=== PATIENT | female | born 1975 | race Caucasian/White ===

== ENCOUNTER 2021-08-13 20:11 | Emergency (ER) | payer BC ==
--- NOTE | 2021-08-13 20:27 | ED Physician Documentation ---
PD HPI CHEST PAIN - Stated complaint Stated Complaint: CHEST PAIN, HX OF CARDIAC - Chief complaint Chief Complaint: Cardiac - History obtained from History obtained from: Patient - History of Present Illness Timing - onset: How many days ago (2-3 days) Timing - duration: Days Timing - details: Gradual onset, Constant Pain level now: 8 Quality: Pain Location: Substernal Improved by: Nothing Worsened by: Other (no exacerbating factors) Associated symptoms: No: Shortness of air, Diaphoresis, Nausea, Vomiting, Feeling faint / dizzy, General Weakness, Palpitations Recently seen: Emergency Dept - Additional information Additional information: patient states "my chest and my head are killing me", onset 2-3 days ago without inciting/exacerbating/ameliorating factors. She says she was evaluated in an ED in [place], [place] 2 days ago for this but left prior to completion of evaluation because test results "were taking too long" (per patient). Patient just moved to [facility]. She says she had COVID in November that resulted in PE and a "hang in my coronary artery" (per patient) . She says she was on anticoagulants for three months. Review of Systems Constitutional: reports: Reviewed and negative Cardiac: reports: Chest pain / pressure. denies: Palpitations, Pedal edema, Calf pain Respiratory: reports: Reviewed and negative GI: reports: Reviewed and negative : denies: Now EGA Musculoskeletal: reports: Reviewed and negative Neurologic: reports: Headache. denies: Generalized weakness, Focal weakness, Numbness PD PAST MEDICAL HISTORY - Past Medical History Past Medical History: Yes Respiratory: Other (PE) - Present Medications Home Medications: Ambulatory Orders Medication Instructions Recorded Confirmed Omeprazole 1 tab PO DAILY 08/13/21 08/13/21 - Allergies Allergies/Adverse Reactions: Allergies Allergy/AdvReac Type Severity Reaction Status Date / Time Penicillins Allergy Unknown Verified 08/13/21 20:33 Sulfa (Sulfonamide Allergy Unknown Verified 08/13/21 20:33 Antibiotics) PD ED PE NORMAL - Vitals Vital signs reviewed: Yes - General General: Alert and oriented X 3, No acute distress, Well developed/nourished - HEENT HEENT: Moist mucous membranes - Neck Neck: Supple, no meningeal sign - Cardiac Cardiac: RRR, No murmur, No gallop, No rub - Respiratory Respiratory: No respiratory distress, Clear bilaterally - Abdomen Abdomen: Soft, Non distended, Other (RUQ and epigastric TTP without rebound or guarding) - Derm Derm: Normal color, Warm and dry - Extremities Extremities: No edema Results - Vitals Vitals: Vital Signs - 24 hr 08/13/21 20:25 Temperature 36.7 C Heart Rate 75 Respiratory 17 Rate Blood Pressure 118/88 H O2 Saturation 100 Oxygen O2 Source Room air - EKG (time done) No standard instances Rate: Rate (enter#) (88) Rhythm: NSR [place]: Normal Intervals: Normal MT QRS: Normal Ischemia: Normal ST segments - Labs Labs: Laboratory Tests 08/13/21 08/13/21 08/13/21 21:01 21:01 21:01 WBC 4.3 L RBC 4.27 Hgb 11.6 L Hct 37.1 MCV 86.9 MCH 27.2 MCHC 31.3 L RDW 15.9 H Plt Count 239 MPV 8.9 Neut # (Auto) 2.4 Lymph # (Auto) 1.5 [place] # (Auto) 0.3 Eos # (Auto) 0.1 Baso # (Auto) 0.1 Absolute Nucleated RBC 0.00 Nucleated RBC % 0.0 D-Dimer Sodium 145 Potassium 3.5 Chloride 105 Carbon Dioxide 27 Anion Gap 13.0 BUN 7 Creatinine 0.7 Estimated GFR (MDRD) 91 Glucose 83 Calcium 8.5 Total Bilirubin 0.6 AST 74 H ALT 86 H Alkaline Phosphatase 61 Troponin I High Sens 3.6 Total Protein 6.0 L Albumin 3.5 Globulin 2.5 Albumin/Globulin Ratio 1.4 Lipase 56 H 08/13/21 21:01 WBC RBC Hgb Hct MCV MCH MCHC RDW Plt Count MPV Neut # (Auto) Lymph # (Auto) [place] # (Auto) Eos # (Auto) Baso # (Auto) Absolute Nucleated RBC Nucleated RBC % D-Dimer 884.1 H Sodium Potassium Chloride Carbon Dioxide Anion Gap BUN Creatinine Estimated GFR (MDRD) Glucose Calcium Total Bilirubin AST ALT Alkaline Phosphatase Troponin I High Sens Total Protein Albumin Globulin Albumin/Globulin Ratio Lipase - Rads (name of study) chest xray Radiology: Prelim report reviewed, See rad report PD MEDICAL DECISION MAKING - ED course Complexity details: reviewed results, re-evaluated patient, considered differ ential, d/w patient ED course: Unremarkable EKG, CXR. mild leukopenia (wbc 4.3), mildly elevated AST, ALT, lipase. Normal troponin. ED RN reported to me that patient was still having pain and requesting pain medication. I added d-dimer and ordered toradol (IV), and PO maalox with viscous lidocaine, and I then went to reevaluate patient. I reviewed the test results with patient and she asked for something for the pain. I explained the medications that I had ordered as well as the next test ordered (d-dimer). She was initially agreeable to this. I asked her if we could contact the ED in [place] where she was recently seen to obtain records, specifically for the purpose of reviewing test results from that visit. She says she cannot remember the name of the ED. Patient then says she cannot take NSAIDs because they cause GI upset and before any further discussion regarding options for pain control she insists on leaving. I reiterated my plan to obtain d-dimer but she insists on leaving before result of d-dimer was available. I encouraged her to return at any time she wants to be reevaluated. Departure - Departure Disposition: 01 Home, Self Care Clinical Impression: Chest pain Qualifiers: Chest pain type: unspecified Qualified Code(s): R07.9 - Chest pain, unspecified Condition: Good Instructions: ED Chest Pain Atypical Unkn Cause Follow-Up: IGGY POWERS, MSN, CONTRACT ASSOCIATE [Credentialed Staff Provider] - (Call to arrange for next available appointment) Comments: You have to declined further testing at this time. Specifically, as we discussed, I ordered another blood test called d-dimer. This is a test that can help investigate pulmonary embolism and guide further testing; a positive result typically indicates the need for a CT scan. You have indicated you do not want to stay and have further testing at this time. You can return to this emergency department at any time for reevaluation. Discharge Date/Time: 08/13/21 22:23
[2021-08-13 20:28] VITALS: BP 118/88
[2021-08-13 21:08] LABS: BASOPHILS # (AUTO) 0.1 10^3/uL (0.0-0.1); BASOPHILS % (AUTO) 1.2 %; EOSINOPHILS # (AUTO) 0.1 10^3/uL (0.0-0.7); EOSINOPHILS % (AUTO) 1.8 %; HCT - HEMATOCRIT 37.1 % (37.0-47.0); HGB - HEMOGLOBIN 11.6 g/dL (12.0-16.0); LYMPHOCYTES # (AUTO) 1.5 10^3/uL (1.5-3.5); LYMPHOCYTES % (AUTO) 35.3 %; MEAN CORPUSCULAR HEMOGLOBIN 27.2 pg (27.0-31.0); MEAN CORPUSCULAR HGB CONC 31.3 g/dL (32.0-36.0); MEAN CORPUSCULAR VOLUME 86.9 fL (81.0-99.0); MEAN PLATELET VOLUME 8.9 fL (7.9-10.8); MONOCYTES # (AUTO) 0.3 10^3/uL (0.0-1.0); MONOCYTES % (AUTO) 6.9 %; NEUTROPHILS # (AUTO) 2.4 10^3/uL (1.5-6.6); NEUTROPHILS % (AUTO) 54.6 %; PLT - PLATELET COUNT 239 10^3/uL (130-450); RED BLOOD COUNT 4.27 10^6/uL (4.20-5.40); RED CELL DISTRIBUTION WIDTH 15.9 % (12.0-15.0); WHITE BLOOD COUNT 4.3 x10^3/uL (4.8-10.8)
[2021-08-13 21:23] LABS: ALBUMIN 3.5 g/dL (3.2-5.5); ALBUMIN/GLOBULIN RATIO 1.4 (1.0-2.2); BILIRUBIN,TOTAL 0.6 mg/dL (0.2-1.0); CALCIUM 8.5 mg/dL (8.5-10.3); CREATININE 0.7 mg/dL (0.4-1.0); POTASSIUM 3.5 mmol/L (3.5-5.0)
[2021-08-13] MEDS ORDERED: KETOROLAC 30 MG/ML VIAL IVP STA (22:03)
[2021-08-13] MEDS ORDERED: LIDOCAINE VISCOUS 2% 15 ML UDC MM STA (22:03)
[2021-08-13] MEDS ORDERED: MAG HYDROX/AL HYDROX/SIMETH 30 ML UDC PO STA (22:03)
--- NOTE | 2021-08-13 22:10 | XRAY Report ---
PROCEDURE: Chest 2 View X-Ray INDICATIONS: chest pain TECHNIQUE: 2 view(s) of the chest. COMPARISON: None. FINDINGS: Surgical changes and devices: None. Lungs and pleura: No pleural effusions or pneumothorax. Lungs are clear. Mediastinum: Mediastinal contours are normal. Heart size is normal. Bones and chest wall: No suspicious bony abnormalities. Soft tissues appear unremarkable. IMPRESSION: No acute cardiopulmonary process. Reviewed by: Katja Coughlin MD on 08/13/2021 10:08 PM PDT Approved by: Katja Coughlin MD on 08/13/2021 10:08 PM PDT Station ID: [id number]
== END 2021-08-13 22:23 | disposition home or self-care (01) ==
LOC: ED 20:11
DX: R07.9 Chest pain, unspecified (principal)
CPT/HCPCS: 36415; 80053; 83690; 84484; 85025; 85379; 93005; 99283; 99284

== ENCOUNTER 2021-08-17 09:41 | Emergency (ER) | payer BC ==
[2021-08-17] MEDS ORDERED: SODIUM CHLORIDE 0.9% 1,000 ML IV STA (10:03)
--- NOTE | 2021-08-17 10:18 | XRAY Report ---
PROCEDURE: Chest 1 View X-Ray INDICATIONS: chest pain TECHNIQUE: One view of the chest was acquired. COMPARISON: 08/13/2021 FINDINGS: Surgical changes and devices: None. Lungs and pleura: No pleural effusions or pneumothorax. Lungs are clear. Mediastinum: Mediastinal contours appear normal. Heart size is normal. Bones and chest wall: No suspicious bony lesions. Overlying soft tissues appear unremarkable. IMPRESSION: Stable examination of the chest without acute cardiopulmonary abnormalities or focal airspace disease . Reviewed by: Shaw Guallpa MD on 08/17/2021 10:16 AM PDT Approved by: Shaw Guallpa MD on 08/17/2021 10:16 AM PDT Station ID: [id number]
[2021-08-17 10:56] LABS: BASOPHILS % (AUTO) 0.5 %; EOSINOPHILS # (AUTO) 0.1 10^3/uL (0.0-0.7); EOSINOPHILS % (AUTO) 2.3 %; HGB - HEMOGLOBIN 11.5 g/dL (12.0-16.0); LYMPHOCYTES % (AUTO) 26.4 %; MEAN CORPUSCULAR HEMOGLOBIN 27.2 pg (27.0-31.0); MEAN CORPUSCULAR HGB CONC 30.3 g/dL (32.0-36.0); MEAN CORPUSCULAR VOLUME 89.8 fL (81.0-99.0); MEAN PLATELET VOLUME 9.8 fL (7.9-10.8); MONOCYTES # (AUTO) 0.3 10^3/uL (0.0-1.0); MONOCYTES % (AUTO) 8.2 %; NEUTROPHILS # (AUTO) 2.4 10^3/uL (1.5-6.6); NEUTROPHILS % (AUTO) 62.3 %; PLT - PLATELET COUNT 165 10^3/uL (130-450); RED BLOOD COUNT 4.23 10^6/uL (4.20-5.40); RED CELL DISTRIBUTION WIDTH 15.9 % (12.0-15.0); WHITE BLOOD COUNT 3.9 x10^3/uL (4.8-10.8)
[2021-08-17 11:09] LABS: ALBUMIN 3.3 g/dL (3.2-5.5); ALBUMIN/GLOBULIN RATIO 1.3 (1.0-2.2); BILIRUBIN,TOTAL 0.8 mg/dL (0.2-1.0); CALCIUM 8.6 mg/dL (8.5-10.3); CREATININE 0.7 mg/dL (0.4-1.0); POTASSIUM 4.1 mmol/L (3.5-5.0); TOTAL PROTEIN 5.9 g/dL (6.7-8.2)
[2021-08-17] MEDS ORDERED: PROMETHAZINE INJ 25 MG in SODIUM CHLORIDE 0.9% 50 ML IV STA (11:15)
[2021-08-17] MEDS ORDERED: KETOROLAC 30 MG/ML VIAL IVP STA (11:15)
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
[2021-08-17] MEDS ORDERED: IOVERSOL 320 100 ML VIAL IVP ONE ×2 (11:59→20:49)
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
[2021-08-17] MEDS ORDERED: HYDROmorphone 0.5 MG/0.5 ML SYRINGE IVP STA (13:12)
[2021-08-17] MEDS ORDERED: DROPERIDOL 5 MG/2 ML VIAL IVP STA (13:12)
[2021-08-17 14:10] VITALS: BP 147/100
== END 2021-08-17 14:10 | disposition home or self-care (01) ==
LOC: ED 09:41
DX: R07.89 Other chest pain (principal); R51.9 Headache, unspecified; R79.89 Other specified abnormal findings of blood chemistry; Z86.711 Personal history of pulmonary embolism; Z86.16 Personal history of COVID-19
CPT/HCPCS: 36415; 70450; 71045; 71275; 80053; 83690; 85025; 85379; 96361; 96365; 96375; 99284; J1170; J7040; Q9967

== ENCOUNTER 2021-10-31 11:51 | Emergency (ER) | payer BC ==
[2021-10-31] MEDS ORDERED: ASPIRIN CHEW 81 MG TABLET PO STA (12:09)
[2021-10-31] MEDS ORDERED: ONDANSETRON 4 MG/2 ML VIAL IVP STA (12:29)
[2021-10-31] MEDS ORDERED: HYDROmorphone 1 MG/ML CARPUJECT IVP STA ×2 (12:29→14:03)
--- NOTE | 2021-10-31 12:30 | ED Physician Documentation ---
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 No recent leg pain or swelling save for a bad knee that is chronic. No recent travel or surgeries. Pain is persistent, severe, unrelated to breathing. Review of Systems Ten Systems: 10 systems reviewed and negative Constitutional: denies: Fever, Chills Cardiac: reports: Chest pain / pressure. denies: Palpitations Respiratory: denies: Cough PD PAST MEDICAL HISTORY - Past Medical History Cardiovascular: Pulmonary embolism Respiratory: Other GI: Other HEEL BUILDER: None : None HEENT: Other Psych: None Musculoskeletal: None Derm: None - Past Surgical History Past Surgical History: Yes General: Gastric surgery - Present Medications Home Medications: Ambulatory Orders Medication Instructions Recorded Confirmed Omeprazole 1 tab PO DAILY 08/13/21 08/13/21 Oxycodone HCl/Acetaminophen 1 - 2 each PO Q6H PRN #14 tablet 10/31/21 [Percocet 5-325 mg Tablet] - Allergies Allergies/Adverse Reactions: Allergies Allergy/AdvReac Type Severity Reaction Status Date / Time metoclopramide [From Reglan] Allergy Anxiety Verified 10/31/21 12:03 Penicillins Allergy Unknown Verified 10/31/21 12:03 Sulfa (Sulfonamide Allergy Unknown Verified 10/31/21 12:03 Antibiotics) - Social History Does the pt smoke?: No Smoking Status: Never smoker Does the pt drink ETOH?: Yes Does the pt have substance abuse?: No - Immunizations Immunizations are current?: Yes PD ED PE NORMAL - Vitals Vital signs reviewed: Yes - General General: Alert and oriented X 3 (Appears mildly uncomfortable) - HEENT HEENT: PERRL, EOMI - Neck Neck: Supple, no meningeal sign, No bony TTP - Cardiac Cardiac: RRR, No murmur - Respiratory Respiratory: No respiratory distress, Clear bilaterally - Abdomen Abdomen: Non tender - Extremities Extremities: No deformity, No tenderness to palpate, No edema, No calf tenderness / cord - Neuro Neuro: Alert and oriented X 3, Normal speech Results - Vitals Vitals: Vital Signs - 24 hr 10/31/21 10/31/21 10/31/21 11:57 12:35 13:18 Temperature 36.5 C Heart Rate 76 61 66 Respiratory 19 16 16 Rate Blood Pressure 118/68 107/63 111/82 H O2 Saturation 100 99 100 Oxygen O2 Source Room air - EKG (time done) 1158 Rate: Rate (enter#) (75) Rhythm: NSR Pierson: Normal Intervals: Normal NV QRS: Normal Ischemia: Normal ST segments - Labs Labs: Laboratory Tests 10/31/21 10/31/21 10/31/21 12:26 12:26 12:26 WBC 4.4 L RBC 4.19 L Hgb 11.5 L Hct 36.9 L MCV 88.1 MCH 27.4 MCHC 31.2 L RDW 14.8 Plt Count 257 MPV 10.0 Neut # (Auto) 2.1 Lymph # (Auto) 1.8 [place] # (Auto) 0.4 Eos # (Auto) 0.1 Baso # (Auto) 0.0 Absolute Nucleated RBC 0.00 Nucleated RBC % 0.0 Sodium 139 Potassium 3.9 Chloride 107 Carbon Dioxide 23 Anion Gap 9.0 BUN 10 Creatinine 0.9 Estimated GFR (MDRD) 68 L Glucose 89 Calcium 8.8 Total Bilirubin 0.5 AST 17 ALT 15 Alkaline Phosphatase 41 L Troponin I High Sens 2.5 Total Protein 6.1 L Albumin 3.6 Globulin 2.5 Albumin/Globulin Ratio 1.4 Lipase 33 - Rads (name of study) Chest x-ray and CTA of the chest Radiology: EMP read contemporaneously PD MEDICAL DECISION MAKING - ED course ED course: 46-year-old woman with sudden severe chest pain radiating to the back since last night who is unlikely have coronary disease based on a nonischemic EKG and the description, that said we still will get a troponin, but her history of PEs and an abnormal aortic valve and the radiation to the back are concerning for dissection versus less likely PE given lack of other findings of PE. Thankfully though CT angiography of the chest demonstrates no abnormalities consistent with the above differential diagnoses. Departure - Departure Disposition: 01 Home, Self Care Clinical Impression: Chest pain Qualifiers: Chest pain type: precordial pain Qualified Code(s): R07.2 - Precordial pain Condition: Good Record reviewed to determine appropriate education?: Yes Instructions: ED Chest Pain NonCardiac Prescriptions: Oxycodone HCl/Acetaminophen [Percocet 5-325 mg Tablet] 1 - 2 each PO Q6H PRN #14 tablet PRN Reason: pain Comments: Prescription sent electronically to [facility] in [place]. Call your doctor to arrange a follow-up appointment, make the next available appointment. In the interim, return anytime if worse or if new symptoms develop. I am prescribing a short course of narcotic pain medication for you. These are potentially dangerous and addictive medications that should be used carefully. These medications may constipate you. Take an gfyi-umg-nplmiyv stool softener (docusate) twice daily with plenty of water while taking these medications. If you go 24 hours without a bowel movement, take ikbd-ojw-bnucblj miralax, per package instructions. Do not drink or drive while taking these medications. If you received narcotic or sedating medications while in the emergency department, do not drive for 24 hours. Store this medication in a safe, secure place and out of reach of children. It is a violation of federal law to give or sell this medication to another person or to use in a manner other than prescribed. The ED will not refill narcotic prescriptions, including prescriptions lost or stolen. To dispose of unwanted medications: 1. [facility] at [address] in [place] has a medication drop box. They accept prescription medications (in pill form) Monday through Monday 9:00 a.m. to 5:00 p.m. 2. The [facility] [employer] [facility] accepts prescription medications (in pill form only) for disposal year round. Call for more information. 3. Contact the [facility] for the next [facility] sponsored prescription drug collection event. , [phone], or [phone]; Note that many narcotic pain relievers also contain Tylenol/acetaminophen. Please ensure that your total dose of acetaminophen from all sources does not exceed 3 g (3000 mg) per day.
[2021-10-31 12:32] LABS: BASOPHILS % (AUTO) 0.9 %; EOSINOPHILS # (AUTO) 0.1 10^3/uL (0.0-0.7); EOSINOPHILS % (AUTO) 3.2 %; HCT - HEMATOCRIT 36.9 % (37.0-47.0); HGB - HEMOGLOBIN 11.5 g/dL (12.0-16.0); LYMPHOCYTES # (AUTO) 1.8 10^3/uL (1.5-3.5); LYMPHOCYTES % (AUTO) 40.6 %; MEAN CORPUSCULAR HEMOGLOBIN 27.4 pg (27.0-31.0); MEAN CORPUSCULAR HGB CONC 31.2 g/dL (32.0-36.0); MEAN CORPUSCULAR VOLUME 88.1 fL (81.0-99.0); MONOCYTES # (AUTO) 0.4 10^3/uL (0.0-1.0); NEUTROPHILS # (AUTO) 2.1 10^3/uL (1.5-6.6); NEUTROPHILS % (AUTO) 47.1 %; PLT - PLATELET COUNT 257 10^3/uL (130-450); RED BLOOD COUNT 4.19 10^6/uL (4.20-5.40); RED CELL DISTRIBUTION WIDTH 14.8 % (12.0-15.0); WHITE BLOOD COUNT 4.4 x10^3/uL (4.8-10.8)
[2021-10-31 12:45] LABS: ALBUMIN 3.6 g/dL (3.2-5.5); ALBUMIN/GLOBULIN RATIO 1.4 (1.0-2.2); BILIRUBIN,TOTAL 0.5 mg/dL (0.2-1.0); CALCIUM 8.8 mg/dL (8.5-10.3); CREATININE 0.9 mg/dL (0.4-1.0); POTASSIUM 3.9 mmol/L (3.5-5.0); TOTAL PROTEIN 6.1 g/dL (6.7-8.2)
[2021-10-31] MEDS ORDERED: IOPAMIDOL-300 100 ML VIAL ONE (12:51)
--- NOTE | 2021-10-31 13:02 | XRAY Report ---
PROCEDURE: Chest 1 View X-Ray INDICATIONS: Chest Pain TECHNIQUE: One view of the chest was acquired. COMPARISON: Chest x-ray dated 08/17/2021 FINDINGS: Surgical changes and devices: None. Lungs and pleura: No pleural effusions or pneumothorax. Lungs are clear. Mediastinum: Mediastinal contours appear normal. Heart size is normal. Bones and chest wall: No suspicious bony lesions. Overlying soft tissues appear unremarkable. IMPRESSION: No acute process. Reviewed by: Balta Muller MD on 10/31/2021 12:01 PM [facility] Approved by: Balta Muller MD on 10/31/2021 12:01 PM [facility] Station ID: [id number]
[2021-10-31] MEDS ORDERED: IOPAMIDOL-300 100 ML VIAL IVP ONE (13:47)
--- NOTE | 2021-10-31 13:57 | CT Report ---
PROCEDURE: ANGIO CHEST W/WO INDICATIONS: Chest pain, aorta protocol CONTRAST: IV CONTRAST: Isovue 300 ml: 100 PO CONTRAST: *NO PO CONTRAST TECHNIQUE: After the administration of intravenous contrast, 2 mm axial images were acquired from the pulmonary apices to the posterior costophrenic angles during the arterial phase. In addition, 1 mm lung kernel and 5 mm soft tissue kernel reconstructions were performed. 3-dimensional coronal oblique maximum int ensity projection (MIP) reformats, 8 mm axial MIP, and 5 mm coronal and sagittal MPR reformats were t hen performed through the thorax. For radiation dose reduction, the following was used: automated exp osure control, adjustment of mA and/or kV according to patient size. COMPARISON: CT dated 08/17/2021 FINDINGS: Image quality: Excellent. Pulmonary arteries: Pulmonary arteries are normal in size, and demonstrate no intraluminal filling d efects to suggest central pulmonary embolism. Lungs and pleura: Lungs are clear. No pleural effusions or pneumothorax. Central and peripheral ai rways are patent. Mediastinum: Heart size is normal, without pericardial effusion. No mediastinal or hilar adenopathy . Thoracic aorta is normal in caliber and enhancement. Esophagus is normal in caliber. No change in moderate hiatal hernia. Hiatal hernia. Bones and chest wall: No suspicious bony lesions. Ribs and thoracic spine appear intact throughout. No axillary or supraclavicular adenopathy. The thyroid is normal in size and there are no incident al findings. Abdomen: Visualized upper abdominal solid organs appear normal in the early arterial phase of enhanc ement. Gastric bypass has been performed. IMPRESSION: 1. No acute process. No evidence of aortic dissection, nor aneurysm. 2. No change in hiatal hernia. CLINICAL RECOMMENDATION STATEMENTS: In patients <35 years with an ITN detected on CT, MRI, or extrathyroidal ultrasound, the Committee re commends further evaluation with dedicated thyroid ultrasound if the nodule is "e1 cm and has no susp icious imaging features, and if the patient has normal life expectancy. In patients "e35 years with an ITN detected on CT, MRI, or extrathyroidal ultrasound, the Committee r ecommends further evaluation with dedicated thyroid ultrasound if the nodule is "e1.5 cm and has no s uspicious imaging features, and if the patient has normal life expectancy. (ACR, 2014) Reviewed by: Balta Muller MD on 10/31/2021 12:56 PM [facility] Approved by: Balta Muller MD on 10/31/2021 12:56 PM [facility] Station ID: [id number]
[2021-10-31 14:33] VITALS: BP 117/77
== END 2021-10-31 14:47 | disposition home or self-care (01) ==
LOC: ED 11:51
DX: R07.2 Precordial pain (principal); M54.9 Dorsalgia, unspecified; I35.8 Other nonrheumatic aortic valve disorders; Z86.16 Personal history of COVID-19; Z86.711 Personal history of pulmonary embolism; Z98.84 Bariatric surgery status
CPT/HCPCS: 36415; 71045; 71275; 80053; 83690; 84484; 85025; 93005; 96374; 96375; 96376; 99284; A9270; J1170; Q9967

== ENCOUNTER 2021-11-04 15:17 | Emergency (ER) | payer BC, MEDICAID ==
[2021-11-04] MEDS: DEXAMETHASONE 10 MG/ML VIAL PO STA (16:20)
[2021-11-04] MEDS: CHERRY SYRUP 10 ML UDC PO ONE (16:21)
[2021-11-04] MEDS: LORazepam 0.5 MG TABLET PO STA (16:22)
[2021-11-04] MEDS: ACETAMINOPHEN 325 MG TABLET PO STA (16:22)
[2021-11-04] MEDS: MAG HYDROX/AL HYDROX/SIMETH 30 ML UDC PO STA (16:23)
[2021-11-04] MEDS: SUCRALFATE 1 GM/10 ML UDC PO STA (16:23)
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
[2021-11-04] MEDS: GABAPENTIN 100 MG CAPSULE PO STA (17:37)
[2021-11-04] MEDS: oxyCODONE 5 MG TABLET PO STA (17:38)
[2021-11-04 17:45] VITALS: BP 128/86
== END 2021-11-04 17:50 | disposition home or self-care (01) ==
LOC: ED 15:17
DX: M54.12 Radiculopathy, cervical region (principal)
CPT/HCPCS: 99282; 99283; A9270

== ENCOUNTER 2022-01-03 09:58 | Emergency (ER) | payer BC, MEDICAID ==
--- NOTE | 2022-01-03 10:44 | XRAY Report ---
PROCEDURE: Hip w/Pelvis 2-3V RT INDICATIONS: fall/pain TECHNIQUE: AP pelvis with lateral view(s) of the right hip(s). COMPARISON: None. FINDINGS: Bones: No fractures or dislocations. Pelvic ring appears intact. No suspicious bony lesions. Soft tissues: The visualized bowel gas pattern is normal. No suspicious soft tissue calcifications. IMPRESSION: Unremarkable right hip radiographs Reviewed by: Jae Moya MD on 01/03/2022 9:43 AM [facility] Approved by: Jae Moya MD on 01/03/2022 9:43 AM [facility] Station ID: [id number]
[2022-01-03] MEDS ORDERED: HYDROmorphone 1 MG/ML CARPUJECT IM STA (11:41)
[2022-01-03] MEDS ORDERED: DEXAMETHASONE 10 MG/ML VIAL IM STA (11:41)
--- NOTE | 2022-01-03 11:44 | ED Physician Documentation ---
History of Present Illness - Stated complaint Stated Complaint: RT HIP PX - Chief complaint Chief Complaint: Ext Problem - History obtained from History obtained from: Patient - Additonal information Additional information: The patient comes to the emergency department chief complaint of right hip pain.She states that she had a fall about a week ago onto her left knee, but did not injure her right hip at all. She is not sure she has been walking differently because the knee pain and has caused her right hip to become inflamed. She indicates that the pain is mostly in the very lateral most aspect of the hip and also, back and her buttock. She has some pain going down into her leg but mostly, it stays right in the area. She states that she is not been sleeping well because hard to get comfortable at night. Patient denies any other complaints at this time. No fevers or chills. She has been ambulatory, though it is not comfortable. She does have a history of recurrent bursitis and has previously had cortisone injections, though not recently. She states she is between primary care providers because her insurance changed. No other complaints at this time. Review of Systems Ten Systems: 10 systems reviewed and negative Constitutional: reports: Reviewed and negative Eyes: reports: Reviewed and negative Ears: reports: Reviewed and negative Nose: reports: Reviewed and negative Throat: reports: Reviewed and negative Cardiac: reports: Reviewed and negative Respiratory: reports: Reviewed and negative GI: reports: Reviewed and negative : reports: Reviewed and negative Skin: reports: Reviewed and negative Musculoskeletal: reports: Extremity pain (Right hip) Neurologic: reports: Reviewed and negative Psychiatric: reports: Reviewed and negative Endocrine: reports: Reviewed and negative Immunocompromised: reports: Reviewed and negative PD PAST MEDICAL HISTORY - Past Medical History Past Medical History: Yes Cardiovascular: Pulmonary embolism Respiratory: Other GI: Other TELECOM MANAGER: None : None HEENT: Other Psych: None Musculoskeletal: None Derm: None - Past Surgical History Past Surgical History: Yes General: Gastric surgery - Present Medications Home Medications: Ambulatory Orders Medication Instructions Recorded Confirmed HYDROcod/ACETAM 5/325 [Compton 5/325] 1 - 2 tablet PO Q6H PRN #14 tablet 01/03/22 predniSONE [Deltasone] 60 mg PO DAILY 5 Days #15 tablet 01/03/22 - Allergies Allergies/Adverse Reactions: Allergies Allergy/AdvReac Type Severity Reaction Status Date / Time metoclopramide [From Reglan] Allergy Anxiety Verified 01/03/22 10:08 Penicillins Allergy Unknown Verified 01/03/22 10:08 Sulfa (Sulfonamide Allergy Unknown Verified 01/03/22 10:08 Antibiotics) - Social History Does the pt smoke?: No Smoking Status: Never smoker Does the pt drink ETOH?: Yes Does the pt have substance abuse?: No - Immunizations Immunizations are current?: Yes PD ED PE NORMAL - Vitals Vital signs reviewed: Yes - General General: Alert and oriented X 3, No acute distress (The patient appears fairly uncomfortable but otherwise in no distress), Well developed/nourished - HEENT HEENT: Atraumatic, PERRL, EOMI, Moist mucous membranes - Neck Neck: Supple, no meningeal sign - Cardiac Cardiac: Strong equal pulses - Respiratory Respiratory: No respiratory distress - Derm Derm: Normal color, Warm and dry, No rash - Extremities Extremities: No deformity, No edema, Other (Tenderness palpation over lateral aspect of right hip, as well as over sciatic joint. No thigh tenderness. No tenderness with pressure to pelvic bone. Mild pain with range of motion passively, though range of motion is fairly full. No shortening/rotation) - Neuro Neuro: Alert and oriented X 3, mass spectroscopist 2-12 intact, No motor deficit, No sensory deficit, Normal speech - Psych Psych: Normal mood, Normal affect Results - Vitals Vitals: Vital Signs - 24 hr 01/03/22 10:06 Temperature 36.2 C L Heart Rate 73 Respiratory 16 Rate Blood Pressure 119/75 O2 Saturation 98 Oxygen O2 Source Room air - Rads (name of study) Right hip x-ray series Radiology: Final report received, EMP read indepedently, See rad report (Negative) PD MEDICAL DECISION MAKING - ED course Complexity details: reviewed results, re-evaluated patient, considered differential, d/w patient ED course: The patient was treated symptomatically in the emergency department with Dilaudid and Decadron. Her x-ray series is negative. I discussed with the patient that we do not do cortisone injections in the emergency department, but she should follow-up with her primary care physician to discuss whether this can be done. I prescribed her a short course of Vicodin and prednisone to see if this will get the symptoms under control. The patient has a history of gastric bypass, so NSAIDs are not ideal. We have discussed the usual indications for return. Departure - Departure Disposition: Home, Self Care Clinical Impression: Right hip pain Sciatica Qualifiers: Laterality: right Qualified Code(s): M54.31 - Sciatica, right side Condition: Stable Instructions: ED Sciatica, ED Bursitis Prescriptions: predniSONE [Deltasone] 60 mg PO DAILY 5 Days #15 tablet HYDROcod/ACETAM 5/325 [Compton 5/325] 1 - 2 tablet PO Q6H PRN #14 tablet PRN Reason: Pain Comments: Your prescriptions have been electronically transmitted to [facility] pharmacy in [place]. Your hip pain seems to be coming from either one of the bursae, or fluid-filled sacs that cushion certain parts of your joints, or possibly the sciatic joint and nerve. Most likely, you have aggravated your hip because of the pain in your knee which is caused you to walk differently. In general, these sorts of injuries and inflammation will blow over on their own, given time. You have been started on medication to help with this today. If you do not find yourself feeling better within the next week, please talk to your primary doctor about having a cortisone injection or possibly, MRI.
[2022-01-03 12:20] VITALS: BP 118/68
== END 2022-01-03 12:21 | disposition home or self-care (01) ==
LOC: ED 09:58
DX: M25.551 Pain in right hip (principal); M54.31 Sciatica, right side
CPT/HCPCS: 73502; 96372; 99282; 99283; J1170